=== PATIENT | male | born 1935 | race Caucasian/White ===

== ENCOUNTER 2016-12-04 07:26 | Emergency (ER) | payer MEDICARE, BC ==
[~2016-12-04] VITALS: Ht 180.3 cm; Wt 81.0 kg
[~2016-12-04 07:26] MED LIST: ASPI81CH37 CHEW; METO50TA PO; MULT1TAB84 PO; NAPR250T57 PO; WELC625T2 PO
[2016-12-04 07:31] VITALS: BP 119/55; PULSE 67; RESP 16; TEMP 97.9; O2SAT 95
[2016-12-04] MEDS ORDERED: HYDR-3533 PO (07:55)
[2016-12-04] MEDS ORDERED: NEXI40CA PO (07:55)
[2016-12-04] MEDS ORDERED: LEVO.05 PO (07:55)
[2016-12-04] MEDS ORDERED: WELC625T2 PO (07:55)
[2016-12-04 08:08] LABS: AUTOMATED NEUTROPHIL # 7.7 TH/MM3 (1.8-7.7); BASOPHIL # 0.1 TH/MM3 (0-0.2); BASOPHIL % 0.7 % (0.0-2.0); EOSINOPHIL # 0.1 TH/MM3 (0-0.4); EOSINOPHIL % 0.7 % (0.0-4.0); HEMATOCRIT 40.4 % (39.0-51.0); LYMPH % 9.9 % (9.0-44.0); MEAN CELL VOLUME 93.7 FL (80.0-100.0); MEAN CORPUSCULAR HEMOGLOBIN 32.3 PG (27.0-34.0); MEAN CORPUSCULAR HGB CONC 34.5 % (32.0-36.0); MONO % 10.8 % (0.0-8.0); NEUT % 77.9 % (16.0-70.0); PLATELET COUNT 170 TH/MM3 (150-450); RED BLOOD COUNT 4.31 MIL/MM3 (4.50-5.90); RED CELL DISTRIBUTION WIDTH 13.1 % (11.6-17.2)
[2016-12-04 08:13] LABS: HEMO FLAGS DIFF FINAL
[2016-12-04] MEDS ORDERED: HYDROmorphone HCL PF 1 MG/ML VIAL IV PUSH ONE (08:15)
[2016-12-04] MEDS ORDERED: KETOROLAC TROMETHAMINE 30 MG/ML (IVP) VIAL IV PUSH ONE (08:15)
[2016-12-04] MEDS ORDERED: CEPH-460 PO (08:16)
[2016-12-04] MEDS ORDERED: PERC5TAB12 PO (08:16)
--- NOTE | 2016-12-04 08:16 | PD ---
HPI Chief Complaint: Pain: Acute or Chronic Time Seen by Provider: 07:41 Travel History International Travel<30 days: No Contact w/Intl Traveler<30days: No Traveled to known affect area: No History of Present Illness HPI 81-year-old man presents to the emergency department complaining of right knee pain. He is postop day 2 following an arthroscopic surgery for what sounds like meniscal tear repair with Dr. Betty Villarreal. He's had worsening pain over the past couple days not controlled by his Lortab 5/325 that he was prescribed. He had a chill last night. Otherwise doing well. He states that a lot of difficulty controlling his pain after shoulder surgery as well. He is a history of Ambrose badillo, is on aspirin, hyperlipidemia, and prostate cancer with a chronic indwelling Payne catheter. No hardware in the knee. No other complaints. History Past Medical History Narrative Medical TIA Ambrose badillo, on aspirin Hyperlipidemia History of prostate cancer, status post radiation, chronic and going fully catheter due to bladder outlet obstruction Hypothyroidism PNEUMOCCOCAL Vaccine (Year): 2010 Menopausal: No Dilation and Curettage (D&C): No Social History Alcohol Use: Yes (DAILY WINE) Tobacco Use: No (QUIT 1959') Allergies-Medications (Allergen,Severity, Reaction): Coded Allergies: Flomax (Verified Allergy, Intermediate, RAPID HEARTBEAT, 12/04/16) Reported Meds & Prescriptions Reported Meds & Active Scripts Active Reported Synthroid (Levothyroxine Sodium) 50 Mcg Tab 50 Mcg PO DAILY Welchol (Colesevelam HCl) 625 Mg Tab 1,875 Mg PO BID Nexium (Esomeprazole DR) 40 Mg Capdr 40 Mg PO DAILY Lortab (Hydrocodone-Acetaminophen) 5-325 Mg Tab 1 Tab PO Q4H PRN Aspirin Low Dose (Aspirin) 81 Mg Chew 81 Mg CHEW DAILY Review of Systems Except as stated in HPI: all other systems reviewed are Neg Physical Exam Narrative GENERAL: 81-year-old man, no acute distress. SKIN: Warm and dry. CARDIOVASCULAR: Warm and well perfused. RESPIRATORY: Normal rate and effort. MUSCULOSKELETAL: Focused examination of the right lower extremity reveals 2 surgical incisions with Steri-Strips and a little bit of blood over the anterior knee. There is a large knee effusion. Surrounding the areas of Steri- Strips there is some faint erythema about a centimeter or so out. Very faint, blanching, without any deep erythema raised margins or other evidence of obvious cellulitis. NEUROLOGICAL: Awake and alert. No gross deficits. Data Data Last Documented VS Vital Signs Date Time Temp Pulse Resp B/P Pulse Ox O2 Delivery O2 Flow Rate FiO2 12/04/16 07:31 97.9 67 16 119/55 95 Orders Complete Blood Count With Diff (12/04/16 07:49) [facility] Medical Decision Making Medical Screen Exam Complete: Yes Emergency Medical Condition: Yes Interpretation(s) CBC unremarkable Differential Diagnosis Inflammation, knee effusion, postop pain, infection, other Narrative Course Medical decision making 81-year-old man with severe knee pain following his surgery. He is a sizable effusion. He also has some faint erythema on the surfaces skin. The leg is not obviously warm or with obvious evidence of cellulitis or septic arthritis. I spoke with Dr. Brumfield, on-call for Dr. Betty Villarreal. We'll place him on a stronger pain medicine. We'll place him on some prophylactic antibiotics given the minimal erythema on the anterior knee. He has an appointment with Dr. Villarreal tomorrow. Diagnosis Primary Impression: Right knee pain Qualified Code: M25.561 - Acute pain of right knee Additional Instructions: Take Keflex as prescribed. Use Percocet as needed. Continue Aleve twice daily. Follow-up with Dr. Villarreal tomorrow. Return to the emergency department for any fevers, chills, worsening pain, or any other new or worsening symptoms. Med/Other Pt SpecificInfo: Prescription(s) given Scripts Oxycodone-Acetaminophen (Percocet)5-325 mg Tab1-2 Tab PO Q4H PRN (PAIN) #30 TAB Ref 0 Prov:Olman Shane MD 12/04/16 Cephalexin (Keflex)500 Mg Dde328 Mg PO Q8H 7 Days Ref 0 Prov:Olman Shane MD 12/04/16 Disposition: 01 DISCHARGE HOME Condition: Stable Olman Shane MD Dec 04, 2016 08:16
== END 2016-12-04 09:13 | disposition home or self-care (01) ==
LOC: PHED 07:26
DX: G89.18 Other acute postprocedural pain (principal); M25.461 Effusion, right knee; Z86.73 Personal history of transient ischemic attack (TIA), and cerebral infarction without residual deficits; I48.91 Unspecified atrial fibrillation; E78.5 Hyperlipidemia, unspecified; Z85.46 Personal history of malignant neoplasm of prostate; E03.9 Hypothyroidism, unspecified; F10.10 Alcohol abuse, uncomplicated; Z79.82 Long term (current) use of aspirin
CPT/HCPCS: 85025; 96374; 96375; 99283; J1170; J1885

== ENCOUNTER 2017-01-21 13:28 | Emergency (ER) | payer MEDICARE, BC ==
[~2017-01-21] VITALS: Ht 180.3 cm; Wt 82.0 kg
[~2017-01-21 13:28] MED LIST changes: +CEPH-460 PO; +HYDR-3533 PO; +LEVO.05 PO; -METO50TA PO; -MULT1TAB84 PO; -NAPR250T57 PO; +NEXI40CA PO; +PERC5TAB12 PO
[2017-01-21 13:35] VITALS: BP 107/64; PULSE 79; RESP 16; TEMP 97.9; O2SAT 97
[2017-01-21] MEDS ORDERED: MULT1TAB84 PO (13:51)
[2017-01-21] MEDS ORDERED: WELC625T2 PO (13:51)
[2017-01-21] MEDS ORDERED: ZINC50TA PO (13:51)
[2017-01-21] MEDS ORDERED: VITA100021 SL (13:51)
[2017-01-21] MEDS ORDERED: CALC600T13 PO (13:51)
[2017-01-21] MEDS ORDERED: VITA10006 PO (13:51)
[2017-01-21] MEDS ORDERED: VITA100064 PO (13:51)
--- NOTE | 2017-01-21 13:57 | PD ---
HPI Chief Complaint: Musculoskeletal Complaint Time Seen by Provider: 13:54 Travel History International Travel<30 days: No Contact w/Intl Traveler<30days: No Traveled to known affect area: No History of Present Illness HPI 82-year-old male status post arthroscopy in November by Dr. Villarreal presents to the emergency department with ongoing and worsening right knee pain with ambulation. Patient states he's had steroid injection to the knee partially 2 weeks ago with approximate 5 days of improvement. Patient has Percocet but states it "does nothing for it". He currently states he is unable to bear weight on the right knee secondary to pain. He denies fever, chills, or erythema. Patient denies any history of gout in the past. He presents due to the ongoing and worsening pain and inability to ambulate. Patient states the pain is over 10 at rest but 10 over 10 when trying to ambulate. He is allergic to Flomax. PFSH Past Medical History Hx Anticoagulant Therapy: Yes (ASA BABY DAILY) Arthritis: Yes Atrial Fibrillation: Yes Autoimmune Disease: No Blood Disorders: No Depression: No Heart Rhythm Problems: Yes (a fib) Cancer: Yes (PROSTATE, skin) Cardiovascular Problems: Yes (A. FIB , CHOL) High Cholesterol: Yes Chemotherapy: No Chest Pain: Yes Congestive Heart Failure: No Cerebrovascular Accident: Yes (TIA) Diabetes: No Diminished Hearing: No Endocrine: No Gastrointestinal Disorders: Yes (HX GI BLEED) GERD: Yes Genitourinary: Yes (INDWELLING WILLARD, HX OF BLADDER SX, TURP, HYDROCEIL) Headaches: Yes Hypertension: Yes Immune Disorder: No Implanted Vascular Access Dvce: No Kidney Stones: Yes Musculoskeletal: Yes Neurologic: Yes Psychiatric: No Reproductive: Yes (PROSTATE CANCER) Respiratory: Yes Immunizations Current: Yes Migraines: No Radiation Therapy: Yes Renal Failure: No Thyroid Disease: Yes (HYPO) PNEUMOCCOCAL Vaccine (Year): 2010 Menopausal: No Ectopic : No Ovarian Cysts: No Dilation and Curettage (D&C): No Tubal Ligation: No Past Surgical History Abdominal Surgery: Yes (HERNIA REPAIR) Appendectomy: Yes Section: No Cholecystectomy: Yes Eye Surgery: Yes (BILAT CATARACTS) Genitourinary Surgery: Yes (TURP, HYDROCELE) Hysterectomy: No Neurologic Surgery: No Other Surgery: Yes (SKIN CA REMOVAL) Social History Alcohol Use: Yes (DAILY WINE) Tobacco Use: No (QUIT ) Substance Use: No Allergies-Medications (Allergen,Severity, Reaction): Coded Allergies: Flomax (Verified Allergy, Intermediate, RAPID HEARTBEAT, 01/21/17) Reported Meds & Prescriptions Reported Meds & Active Scripts Active Prednisone (48) 10 mg tab Dose Pack (Prednisone) 10 Mg Dspk 10 Mg PO DIRECTED Reported Zinc 50 Mg Tab 50 Mg PO DAILY Vitamin E 1,000 Unit Cap 1,000 Units PO DAILY Calcium 600 Mg Tab 600 Mg PO DAILY Multivitamin Adults (Multiple Vitamins W/ Minerals) 1 Tab 1 Tab PO DAILY Vitamin B-12 (Cyanocobalamin) 1,000 Mcg Subl 1,000 Mcg SL DAILY Vitamin D (Cholecalciferol) 1,000 Unit Tab 1,000 Units PO DAILY Welchol (Colesevelam HCl) 625 Mg Tab 1,875 Mg PO DAILY Synthroid (Levothyroxine Sodium) 50 Mcg Tab 50 Mcg PO DAILY Welchol (Colesevelam HCl) 625 Mg Tab 1,875 Mg PO BID Nexium (Esomeprazole DR) 40 Mg Capdr 40 Mg PO DAILY Review of Systems Except as stated in HPI: all other systems reviewed are Neg General / Constitutional: No: Fever, Chills Eyes: No: Visual changes HENT: No: Headaches Cardiovascular: No: Chest Pain or Discomfort Respiratory: No: Shortness of Breath Gastrointestinal: No: Abdominal Pain Genitourinary: No: Dysuria Musculoskeletal: No: Pain Skin: No Rash Neurologic: No: Weakness Psychiatric: No: Depression Endocrine: No: Polydipsia Hematologic/Lymphatic: No: Easy Bruising Physical Exam Narrative GENERAL: Patient appears in mild to moderate distress. SKIN: Warm and dry. Normal color. Normal turgor. The right knee has mild effusion without erythema but increased warmth is present. HEAD: Atraumatic. Normocephalic. EYES: Pupils equal and round. No scleral icterus. No injection or drainage. ENT: No nasal bleeding or discharge. Mucous membranes pink and moist. NECK: Trachea midline. No JVD. CARDIOVASCULAR: Irregular rate and rhythm. No murmurs appreciated. RESPIRATORY: No accessory muscle use. Clear to auscultation. Breath sounds equal bilaterally. MUSCULOSKELETAL: Extremities without clubbing, cyanosis, or edema. No obvious deformities. Patient has mild effusion of the right knee without signs of infection. Range of motion is limited secondary to pain. NEUROLOGICAL: Awake and alert. No obvious cranial nerve deficits. Motor grossly within normal limits. Five out of 5 muscle strength in the arms and legs. Normal speech. PSYCHIATRIC: Appropriate mood and affect; insight and judgment normal. Data Data Last Documented VS Vital Signs Date Time Temp Pulse Resp B/P Pulse Ox O2 Delivery O2 Flow Rate FiO2 01/21/17 14:03 97 01/21/17 13:35 97.9 79 16 107/64 Orders Complete Blood Count With Diff (01/21/17 13:51) Comprehensive Metabolic Panel (01/21/17 13:51) Prothrombin Time / Inr (Pt) (01/21/17 13:51) Act Partial Throm Time (Ptt) (01/21/17 13:51) Iv Access Insert/Monitor (01/21/17 13:51) Ecg Monitoring (01/21/17 13:51) Oximetry (01/21/17 13:51) Sodium Chloride 0.9% Flush (Ns Flush) (01/21/17 14:00) Uric Acid (01/21/17 13:51) Westergren Sedimentation Rate (01/21/17 13:51) C-Reactive Protein (Crp) (01/21/17 13:51) Dexamethasone Inj (Decadron Inj) (01/21/17 16:30) Labs Laboratory Tests Test 01/21/17 13:55 White Blood Count 7.9 TH/MM3 Red Blood Count 4.54 MIL/MM3 Hemoglobin 14.4 GM/DL Hematocrit 42.3 % Mean Corpuscular Volume 93.3 FL Mean Corpuscular Hemoglobin 31.7 PG Mean Corpuscular Hemoglobin 34.0 % Concent Red Cell Distribution Width 13.1 % Platelet Count 184 TH/MM3 Mean Platelet Volume 7.1 FL Neutrophils (%) (Auto) 77.0 % Lymphocytes (%) (Auto) 14.2 % Monocytes (%) (Auto) 6.9 % Eosinophils (%) (Auto) 1.1 % Basophils (%) (Auto) 0.8 % Neutrophils # (Auto) 6.1 TH/MM3 Lymphocytes # (Auto) 1.1 TH/MM3 Monocytes # (Auto) 0.5 TH/MM3 Eosinophils # (Auto) 0.1 TH/MM3 Basophils # (Auto) 0.1 TH/MM3 CBC Comment DIFF FINAL Differential Comment Erythrocyte Sedimentation Rate 12 mm/hr Prothrombin Time 10.3 SEC Prothromb Time International 0.9 RATIO Ratio Activated Partial 26.1 SEC Thromboplast Time Sodium Level 142 MEQ/L Potassium Level 3.7 MEQ/L Chloride Level 108 MEQ/L Carbon Dioxide Level 25.9 MEQ/L Anion Gap 8 MEQ/L Blood Urea Nitrogen 21 MG/DL Creatinine 1.20 MG/DL Estimat Glomerular Filtration 58 ML/MIN Rate Random Glucose 106 MG/DL Uric Acid 5.4 MG/DL Calcium Level 8.5 MG/DL Total Bilirubin 0.6 MG/DL Aspartate Amino Transf 17 U/L (AST/SGOT) Alanine Aminotransferase 27 U/L (ALT/SGPT) Alkaline Phosphatase 76 U/L C-Reactive Protein 3.18 MG/DL Total Protein 6.5 GM/DL Albumin 3.4 GM/DL MDM Medical Decision Making Medical Screen Exam Complete: Yes Emergency Medical Condition: Yes Differential Diagnosis Right knee effusion. Right knee pain. Osteoarthritis. Gout. Infection. Narrative Course Patient is medically stable at time of exam. Labs ordered including CBC, CMP, uric acid level ESR, and CRP. CBC is unremarkable as is the CMP. Uric acid level is normal. ESR is normal. CRP is elevated at 3.36. Call was attempted to be placed to Dr. Villarreal, and I spoke with Dr. Villa who was on-call for him. We agreed on the patient treatment plan. I do not feel the patient has cellulitis in the knee. Patient will be treated with Decadron 10 mg IV as well as a prednisone taper pack over the next 2 weeks. Patient is encouraged to take his Percocet every 6 hours when necessary pain. Patient is encouraged to use his cane or walker for ambulation. Recommend frequent icing to the right knee. Patient is encouraged to follow with Dr. Villarreal next week to ensure improvement. Patient may return the emergency Department with worsening symptoms as needed. Diagnosis Primary Impression: Right knee pain Qualified Code: M25.561 - Chronic pain of right knee Additional Impression: Osteoarthritis (arthritis due to wear and tear of joints) Qualified Code: M17.11 - Osteoarthritis of right knee, unspecified osteoarthritis type Referrals: Rangel Villarreal MD ([place]) Patient Instructions: General Instructions, Osteoarthritis (ED) Additional Instructions: Labs ordered including CBC, CMP, uric acid level ESR, and CRP. CBC is unremarkable as is the CMP. Uric acid level is normal. ESR is normal. CRP is elevated at 3.36. Call was attempted to be placed to Dr. Villarreal who was unreachable. I do not feel the patient has cellulitis in the knee. Patient will be treated with Decadron 10 mg IV as well as a prednisone taper pack over the next 2 weeks. Patient is encouraged to take his Percocet every 6 hours when necessary pain. Patient is encouraged to use his cane or walker for ambulation. Recommend frequent icing to the right knee. Patient is encouraged to follow with Dr. Villarreal next week to ensure improvement. Patient may return the emergency Department with worsening symptoms as needed. Med/Other Pt SpecificInfo: Prescription(s) given Scripts Prednisone (48) 10 mg tab Dose Pack 10 Mg Dspk10 Mg PO DIRECTED #1 DSPK Prov:Khanh Hsu MD 01/21/17 Disposition: 01 DISCHARGE HOME Condition: Stable Fercho Betts Jan 21, 2017 13:57
[2017-01-21] MEDS ORDERED: SODIUM CHLORIDE 0.9% FLUSH 5 ML FLUSH IVF PRN (14:00)
[2017-01-21 14:03] VITALS: O2SAT 97
[2017-01-21 14:07] LABS: AUTOMATED NEUTROPHIL # 6.1 TH/MM3 (1.8-7.7); BASOPHIL # 0.1 TH/MM3 (0-0.2); BASOPHIL % 0.8 % (0.0-2.0); EOSINOPHIL # 0.1 TH/MM3 (0-0.4); EOSINOPHIL % 1.1 % (0.0-4.0); HEMATOCRIT 42.3 % (39.0-51.0); LYMPH % 14.2 % (9.0-44.0); LYMPHOCYTE # 1.1 TH/MM3 (1.0-4.8); MEAN CELL VOLUME 93.3 FL (80.0-100.0); MEAN CORPUSCULAR HEMOGLOBIN 31.7 PG (27.0-34.0); MONO % 6.9 % (0.0-8.0); PLATELET COUNT 184 TH/MM3 (150-450); RED BLOOD COUNT 4.54 MIL/MM3 (4.50-5.90); RED CELL DISTRIBUTION WIDTH 13.1 % (11.6-17.2); WHITE BLOOD COUNT 7.9 TH/MM3 (4.0-11.0)
[2017-01-21 14:16] LABS: CHLORIDE 108 MEQ/L (98-107); HEMO FLAGS DIFF FINAL; POTASSIUM 3.7 MEQ/L (3.5-5.1); SODIUM (NA) 142 MEQ/L (136-145)
[2017-01-21 14:20] LABS: ANION GAP 8 MEQ/L (5-15); APTT (PATIENT) 26.1 SEC (24.3-30.1); BICARBONATE 25.9 MEQ/L (21.0-32.0); BLOOD UREA NITROGEN 21 MG/DL (7-18); INTERNATIONAL NORMALIZED RATIO 0.9 RATIO; PROTHROMBIN TIME - PATIENT 10.3 SEC (9.8-11.6)
[2017-01-21 14:23] LABS: ALT (GPT) 27 U/L (12-78); AST (GOT) 17 U/L (15-37); GLOMERULAR FILTRATION RATE 58 ML/MIN (>89)
[2017-01-21 14:25] LABS: TOTAL BILIRUBIN ADULT 0.6 MG/DL (0.2-1.0)
[2017-01-21 14:26] LABS: ALKALINE PHOSPHATASE 76 U/L (45-117)
[2017-01-21 15:50] LABS: URIC ACID 5.4 MG/DL (2.6-7.2)
[2017-01-21] MEDS ORDERED: PRED10PA2 PO (16:25)
[2017-01-21] MEDS ORDERED: DEXAMETHASONE SOD PHOS 20 MG/5 ML VIAL IV PUSH ONE (16:30)
== END 2017-01-21 17:06 | disposition home or self-care (01) ==
LOC: PHEFT 13:28
DX: M17.11 Unilateral primary osteoarthritis, right knee (principal); G89.29 Other chronic pain; I48.91 Unspecified atrial fibrillation; I10 Essential (primary) hypertension; Z87.891 Personal history of nicotine dependence
CPT/HCPCS: 80053; 84550; 85025; 85610; 85652; 85730; 86140; 96374; 99283; J1100

== ENCOUNTER 2017-10-26 05:50 | Day surgery (SDC) | payer MEDICARE, BC ==
[~2017-10-26 05:50] MED LIST changes: -ASPI81CH37 CHEW; +CALC600T13 PO; -CEPH-460 PO; +COLE625 PO; -HYDR-3533 PO; +MULT1TAB84 PO; -PERC5TAB12 PO; +PRED10PA2 PO; +VITA100021 SL; +VITA10006 PO; +VITA100064 PO; -WELC625T2 PO; +ZINC50TA PO
[2017-10-26] MEDS ORDERED: MUPIROCIN 2% OINT 1 APPLIC/GM SYR NASAL SCH (06:45)
[2017-10-26] MEDS ORDERED: POVIDONE IODINE 5% (ANTISEPSIS KIT) 4 APPLICATIONS EACH NARE SCH (06:45)
[2017-10-26] MEDS ORDERED: CHLORHEXIDINE GLUCONATE 2 % 1 PACK (2 CLOTHS) TOPICAL SCH (06:45)
[2017-10-26] MEDS ORDERED: Hold AM Insulin & AM Hypoglycemic medications in diabetic patients PRN (06:45)
[2017-10-26] MEDS ORDERED: NS 1000 ML IV SCH (06:45)
[2017-10-26] MEDS ORDERED: ceFAZolin 2 GM PREMIX 50 ML IV SCH (06:45)
[2017-10-26] MEDS ORDERED: ASPI-516 CHEW (07:12)
[2017-10-26] MEDS ORDERED: TOPR50TA PO (07:12)
[2017-10-26] MEDS ORDERED: COLE625 PO (07:12)
[2017-10-26] MEDS ORDERED: LIDOCAINE HCL 1% PF 30 ML VIAL ONE ×2 (07:55→08:06)
[2017-10-26] MEDS ORDERED: VANCOMYCIN 500 MG VIAL ONE (07:55)
[2017-10-26] MEDS ORDERED: MIDAZOLAM HCL 2 MG/2 ML VIAL ONE (07:55)
[2017-10-26] MEDS ORDERED: NALOXONE HCL 0.4 MG/ML AMP ONE (07:56)
[2017-10-26] MEDS ORDERED: FLUMAZENIL 0.5 MG/5 ML VIAL ONE (07:56)
--- NOTE | 2017-10-26 08:39 | CATHPROC ---
[facility] HIS Report Study Information Study Number Admission Scheduled Start Study Start [id number] Oct 26 2017 5:50AM 10/26/2017 Oct 26 2017 7:36AM [place] [facility] Cardiac Pacer/ICD Admit Source Facility Department Other [facility] - Footwear Sales Associate Physician and Clinical Staff Initial MD Luna, Lobo Story Reader Heena Alberts BSRN Story Reader Anahy Whitley RN Recorder Josefina Cardenas,RT(R) Scrub Kelly Figueroa,DESIGN CENTER CONSULTANT X-Ray Mirna Upton,RT(R) TECH2 Equipment Time Light Industrial Description Size Mfg Part Number Used/Scraped [id number] 08:12 [employer] SUTURE, STRIP PLUS 1/2" * Used *[id number] 08:12 [employer] SUTURE, STRIP PLUS 1/2" * Used *[id number] 08:12 MEDLINE PACER ADHESIVE, MASTISOL 2/3CC 2/3CC 0523-48 Used 08:12 MEDLINE PACER QUEEN, LIMB * 2530 *[id number] Used [id number] 08:12 MEDLINE PACER PACK, PACER CUSTOM * Used *[id number] 08:12 MEDLINE PACER PEN, SKIN DUAL W/ RULER * Used *[id number] 08:18 Needle Sponge Count 1 1 Used 08:18 Needle Sponge Count 2 22 Used 08:18 Needle Sponge Count 20 200 Used [id number] SUTURE, 2-0 SILK Strands ([id number]) SUTURE, 3-0 VICRYL [SH] ([id number]) SUTURE, 4-0 MONOCRYL [PS2] ([id number]) SUTURE, 4-0 VICRYL [PS2] ([id number]) [id number] 08:12 [employer],WARM AIR CCL * Used *[id number] [facility] PAD, ELECTROSURGICAL 08:12 * [id number] *[id number] Used SURGICAL GROUNDING ORANGE [id number] 08:12 [employer] PAXTON. / * Used *11909 Labs Hgb (g/dl) Hct (%) WBC (l/cumm) Platelets (thousands) 11.60-17.00 35.00-51.00 4.00-11.00 150.00-450.00 14.5 41.9 5.7 174 Glucose (mg/dl) BUN (mg/dl) Creatinine (mg/dl) BUN:Creatinine (1:x) 74.00-106.00 7.00-18.00 0.50-1.30 10.00-20.00 103 22 1.3 16.9 Na (meq/l) K (meq/l) 136.00-145.00 3.50-5.10 142 4.3 CPK-MB (ng/ML) 0.50-3.60 Not Drawn Medication Medication Total Dose (Bolus/Oral) Medication Total Dosage/Unit 2% XYLOCAINE 50 mL OXYGEN 2 l/min VERSED 2 mg Medications (Bolus/Oral) Medication Time Given Dosage/Unit Administered By Reason OXYGEN 10/26/2017 8:11:43 AM 2 l/min Anahy Whitley 2 l/min OXYGEN given in lab by Anahy Whitley, RN via Nasal. 2% XYLOCAINE 10/26/2017 8:13:45 AM 50 mL Lobo Luna 50 mL 2% XYLOCAINE given in lab by Lobo Luna via Subcutaneous. VERSED 10/26/2017 8:15:48 AM 2 mg Anahy Whitley Patient arrived on 2 mg VERSED given by Anahy Whitley, RN via Peripheral IV. Ordered by Lobo Luna. Medication (Drip) Medication Time Given Dosage/Unit Concentration/Unit Diluent (ml) Solutio n ANCEF 10/26/2017 7:56:45 AM 1 g 1 g ANCEF given pre op via Peripheral IV. Ordered by Lobo Luna. IV Solutions 10/26/2017 8:02:55 AM 0 mL (IV) 500 NaCl .9 Patient arrived on IV Solutions in Right Antecubital via Peripheral IV. Pump/Drip Flow = 20 ml/hr usi ng NaCl .9. Ordered by Lobo Luna. Initial Case Assessment Cardiovascular HR Rhythm NIBP Chest Pain 71 reg 112/70 0 Edema Present Skin color Skin None Normal Warm Neurological State Oriented to time-place- Alert Moves all extremities person Respiration - General Respiration Rate SpO2 (%) (B/min) 14 100 Chronological Log Time Study Chronological Log 7:54:03 Patient arrived via Bed. 7:54:04 Patient Name, D.O.B, / Armband Verified By R.N. 7:56:45 1 g ANCEF given pre op via Peripheral IV. Ordered by Lobo Luna. 7:58:00 2% CHLORHEXIDINE GLUCONATE WASH AND NASAL SWIPE DONE PRIOR TO PROCEDURE. 7:58:30 Patient has been NPO for More than 6Hrs. 7:59:00 A # 20 IV was noted in the Antecubital (right). Grade = 0 7:59:01 History and physical on the chart or being dictated. 7:59:10 Skin Breakdown-none 8:00:00 Bovie ground pad applied to:right thigh First Sponge And Instrument Count Done by Anahy Whitley RN. 8:01:00 Hypo's: 1, Sponges: 20, Bovie/scratch: 2 Sutures: 2, Blades: 2, Instruments: 26, Syveck Patches: 0 8:02:38 Left Upper Chest Prepped Times Two. Patient arrived on IV Solutions in Right Antecubital via Peripheral IV. Pump/Drip Flow = 20 ml/h r using NaCl .9. Ordered 8:02:55 by Lobo Luna. Assessment: Initial Case, HR=71 BPM, Rhythm=reg, YCLN=743/70 mmhg, Chest Pain=0, Edema=None, Col or=Normal, Skin = Warm 8:03:39 Neurological: State=Alert, Ox3, [place] Respiration: Resp=14 B/min, AnZ0=936 % Vitals capture started with the following parameters, Patient=Adult, Interval=15 min, Initial Pr ooqjpd=598 mmHg, 8:05:58 Deflation Rate=5 mmHg 8:09:34 Case Start 8:11:43 2 l/min OXYGEN given in lab by Anahy Whitley RN via Nasal. 8:12:21 Vitals capture stopped. 8:12:27 HR=82 bpm, JKPA=573/70 mmhg, SpO2=99 %, Pain=0, Kavin=10, Dey=2 Time Out. Correct patient, procedure, procedure equipment, site and side verified with physician present. Time 8:13:00 concurred by MD, individual staff and TURBINE ENGINE ASSEMBLER. 8:13:45 50 mL 2% XYLOCAINE given in lab by Lobo Luna via Subcutaneous. 8:15:48 Patient arrived on 2 mg VERSED given by Anahy Whitley RN via Peripheral IV. Ordered by Lobo Fregoso. 8:16:26 Surgical Incision Made. 8:16:40 A pocket was created at the Lt. upper chest. 8:21:32 Loop Recorder Removed. 8:23:22 The pocket was closed. 8:23:51 Implant Procedure was performed. 8:23:59 A Loop Recorder Removed . (Single) Second Sponge And Instrument Count Done by Lobo Luna. 8:24:40 Hypo's: 1, Sponges: 20, Bovie/scratch: 2 Sutures: ~SUTURE~, Blades: 2, Instruments: 26, Syveck Patches: 0 8:26:15 Case End The Final Sponge And Instrument Count Done by Lobo Luna. 8:27:30 Hypo's: 1, Sponges: 20, Bovie/scratch: 2 Sutures: 2, Blades: 2, Instruments: 26, Syveck Patches: 0 8:31:25 HR=90 bpm, FYYC=187/62 mmhg, SpO2=95 %, Pain=0, Kavin=10, Dey=2 8:37:03 Bedside Report will be given. 8:37:07 Steri-strips and a sterile dressing applied to site. End Study - Contrast Media Used In Study Contrast Total Opened (mL) Total Used (mL) Total Wasted (mL) Unspecified 0 0 0 End Study - Maximum Contrast Load Max Contrast Load (mL) 315.4 End Study - Radiation Exposure Fluoro Time (minutes) 0.0 End Study - Patient Disposition Complications Transferred To No Outpatient Bed
== END 2017-10-26 09:50 | disposition home or self-care (01) ==
LOC: HDOC 05:50 → HDIC 05:50 → HDOC 09:50
PROVIDERS: ATTEND Internal Medicine Interventional Cardiology
DX: Z45.09 Encounter for adjustment and management of other cardiac device (principal); I48.0 Paroxysmal atrial fibrillation; Z95.818 Presence of other cardiac implants and grafts; Z86.73 Personal history of transient ischemic attack (TIA), and cerebral infarction without residual deficits; Z79.82 Long term (current) use of aspirin
CPT/HCPCS: 33284; 99152; J0690; J2250; J3010; J3370; J2310

== ENCOUNTER 2018-01-22 11:13 | Emergency (ER) | payer MEDICARE, BC ==
[~2018-01-22] VITALS: Ht 180.3 cm; Wt 84.0 kg
[~2018-01-22 11:13] MED LIST changes: +ASPI-516 CHEW; -CALC600T13 PO; -MULT1TAB84 PO; -PRED10PA2 PO; +TOPR50TA PO; -VITA10006 PO; -ZINC50TA PO
[2018-01-22 11:14] VITALS: BP 117/68; PULSE 76; RESP 18; TEMP 98; O2SAT 96
[2018-01-22] MEDS ORDERED: NIAC100T2 PO (11:33)
--- NOTE | 2018-01-22 11:41 | PD ---
HPI Chief Complaint: Skin Problem Time Seen by Provider: 11:27 Travel History International Travel<30 days: No Contact w/Intl Traveler<30days: No Traveled to known affect area: No History of Present Illness HPI Patient states that about a 4 day history of increasing swelling to his left lower extremity. After he accidentally stumped his toe, he started to develop swelling to his foot and now he started to notice a swelling getting worse. So he decided to come and get it evaluated. He presented to an urgent care who referred him to come to the ER to rule out DVT. No additional testing was done at that urgent care. Patient is here stating that outside of the swelling his pain to his toe is the main issue that he has been having. But that he got scared when urgent care mention the possibility of blood clot. The pain is about [address] Pain is worsened by ambulation and movement of this toe. Does not seem to be alleviated greatly by anything else. Not associated with any factors such as fever, rash, nausea, vomiting, diarrhea , chest pain, abdominal pain or back pain. Patient states Flomax as an allergy PFSH Past Medical History Hx Anticoagulant Therapy: Yes (ASA BABY DAILY) Arthritis: Yes Atrial Fibrillation: Yes Autoimmune Disease: No Blood Disorders: No Depression: No Heart Rhythm Problems: Yes (a fib) Cancer: Yes (PROSTATE, skin) Cardiovascular Problems: Yes (AF) High Cholesterol: Yes Chemotherapy: No Chest Pain: Yes Congestive Heart Failure: No Cerebrovascular Accident: Yes (TIA) Diabetes: No Diminished Hearing: No Endocrine: No Gastrointestinal Disorders: Yes (HX GI BLEED) GERD: Yes Genitourinary: Yes (INDWELLING WILLARD, HX OF BLADDER SX, TURP, HYDROCEIL) Headaches: Yes Hypertension: Yes Immune Disorder: No Implanted Vascular Access Dvce: No Kidney Stones: Yes Musculoskeletal: Yes Neurologic: Yes Psychiatric: No Reproductive: Yes (PROSTATE CANCER) Respiratory: Yes Immunizations Current: Yes Migraines: No Radiation Therapy: Yes Renal Failure: No Thyroid Disease: Yes (HYPO) Influenza Vaccination: Yes PNEUMOCCOCAL Vaccine (Year): 2010 Menopausal: No Ectopic : No Ovarian Cysts: No Dilation and Curettage (D&C): No Tubal Ligation: No Past Surgical History Abdominal Surgery: Yes (HERNIA REPAIR) Appendectomy: Yes Section: No Cholecystectomy: Yes Eye Surgery: Yes (BILAT CATARACTS) Genitourinary Surgery: Yes (TURP, HYDROCELE; URINARY CATHETER) Hysterectomy: No Neurologic Surgery: No Other Surgery: Yes (SKIN CA REMOVAL) Social History Alcohol Use: Yes (DAILY WINE) Tobacco Use: No (QUIT ) Substance Use: No Allergies-Medications (Allergen,Severity, Reaction): Coded Allergies: tamsulosin (Unverified Allergy, Intermediate, RAPID HEARTBEAT, 01/22/18) Reported Meds & Prescriptions Reported Meds & Active Scripts Active Reported Niacin 100 Mg Tab 100 Mg PO DAILY Welchol (Colesevelam HCl) 625 Mg Tab 1,875 Mg PO DAILY Toprol XL (Metoprolol Succinate) 50 Mg Tab 50 Mg PO DAILY Vitamin B-12 (Cyanocobalamin) 1,000 Mcg Subl 1,000 Mcg SL DAILY Vitamin D3 (Cholecalciferol) 1,000 Unit Tab 1,000 Units PO DAILY Synthroid (Levothyroxine Sodium) 50 Mcg Tab 50 Mcg PO DAILY Nexium (Esomeprazole DR) 40 Mg Capdr 40 Mg PO DAILY Review of Systems General / Constitutional: No: Fever Eyes: No: Visual changes HENT: No: Headaches Cardiovascular: Positive: Edema Respiratory: No: Shortness of Breath Gastrointestinal: No: Abdominal Pain Genitourinary: No: Dysuria Musculoskeletal: No: Pain Skin: No Rash Neurologic: No: Weakness Psychiatric: No: Depression Endocrine: No: Polydipsia Hematologic/Lymphatic: No: Easy Bruising Physical Exam Narrative GENERAL: SKIN: Warm and dry. HEAD: Atraumatic. Normocephalic. EYES: Pupils equal and round. No scleral icterus. No injection or drainage. ENT: No nasal bleeding or discharge. Mucous membranes pink and moist. NECK: Trachea midline. No JVD. CARDIOVASCULAR: Regular rate and rhythm. RESPIRATORY: No accessory muscle use. Clear to auscultation. Breath sounds equal bilaterally. GASTROINTESTINAL: Abdomen soft, non-tender, nondistended. Hepatic and splenic margins not palpable. MUSCULOSKELETAL: Extremities without clubbing, cyanosis,No obvious deformities. Left second toe has some diffuse edema around it as well as extension of the edema onto the dorsum of the foot and distally towards mid tib-fib. Edema is pitting. However very strong dorsalis pedis pulses, excellent capillary refill time distally to all toes. NEUROLOGICAL: Awake and alert. No obvious cranial nerve deficits. Motor grossly within normal limits. Five out of 5 muscle strength in the arms and legs. Normal speech. PSYCHIATRIC: Appropriate mood and affect; insight and judgment normal. Data Data Last Documented VS Vital Signs Date Time Temp Pulse Resp B/P (MAP) Pulse Ox O2 Delivery O2 Flow Rate FiO2 01/22/18 11:29 Room Air 01/22/18 11:14 98.0 76 18 117/68 (84) 96 Orders Orders Foot, Complete ([id number]) (01/22/18 11:39) Us Leg Venous Doppler (01/22/18 11:39) Shoe Post Op (01/22/18 ) Support Splint (01/22/18 13:57) Ed Discharge Order (01/22/18 13:58) MDM Medical Decision Making Medical Screen Exam Complete: Yes Emergency Medical Condition: Yes Medical Record Reviewed: Yes Differential Diagnosis Toe fracture versus toe dislocation versus DVT versus peripheral edema secondary to trauma. Narrative Course Ultrasound is negative for any DVT X-ray is positive for a transverse nondisplaced fracture of the second digit proximal phalanx involving the distal metaphysis. Diagnosis Primary Impression: Left second toe fracture closed nondisplaced Patient Instructions: General Instructions, Toe Fracture (ED) Scripts Codeine-Acetaminophen (Codeine-Acetaminophen) 30-300 mg Tab 1 TAB PO Q4H Y for PAIN, #14 TAB 0 Refills Prov: Curly Mccabe MD 01/22/18 Disposition: 01 DISCHARGE HOME Condition: Stable Curly Mccabe MD Jan 22, 2018 11:41
--- NOTE | 2018-01-22 12:03 | RADRPT ---
EXAM DATE/TIME: 01/22/2018 11:43 [facility] COMPARISON: No previous studies available for comparison. INDICATIONS : Left Foot second digit swelling. MEDICAL HISTORY : None. SURGICAL HISTORY : None. ENCOUNTER: Initial ACUITY: 1 day PAIN SCORE: 8/10 LOCATION: Left foot FINDINGS: 3 views of the left foot demonstrate a transverse fracture through the proximal phalanx of the second digit involving the distal metaphysis. There is no significant displacement. No extension into the i nterphalangeal joint is identified. No other fracture is identified. The Lisfranc joint appears intac t. No soft tissue abnormality or radiopaque foreign body is identified. CONCLUSION: There is a transverse nondisplaced fracture of the second digit proximal phalanx involving the distal metaphysis. Devan Cope MD on January 22, 2018 at 12:01 Board Certified Radiologist. This report was verified electronically.
--- NOTE | 2018-01-22 13:32 | RADRPT ---
EXAM DATE/TIME: 01/22/2018 12:06 [facility] COMPARISON: No previous studies available for comparison. INDICATIONS : Left leg pain. MEDICAL HISTORY : Stroke. Hypothyroidism. Hypertension. A-fib. GERD. SURGICAL HISTORY : Appendectomy. Cholecystectomy. ENCOUNTER: Initial ACUITY: 3 days PAIN SCORE: 5/10 LOCATION: Left foot. TECHNIQUE: Venous ultrasound of the leg was performed from the inguinal ligament to the proximal calf. Real-susan e, color Doppler and spectral tracing, compression and augmentation techniques were used. FINDINGS: There is normal compressibility of the deep venous system from the inguinal region to the proximal ca lf. No echogenic clot is seen in the lumen of the common femoral, femoral, popliteal, and posterior tibial veins. There is a normal response of the venous system to proximal and distal augmentation an d respiration. CONCLUSION: Negative exam. No sonographic or Doppler findings of deep venous thrombosis. Eddy Light MD on January 22, 2018 at 12:57 Board Certified Radiologist. This report was verified electronically.
[2018-01-22] MEDS ORDERED: CODE30TA2 PO (13:59)
[2018-01-22 14:26] VITALS: BP 138/72
== END 2018-01-22 14:27 | disposition home or self-care (01) ==
LOC: PHED 11:13
DX: S92.515A Nondisplaced fracture of proximal phalanx of left lesser toe(s), initial encounter for closed fracture (principal); E03.9 Hypothyroidism, unspecified; I10 Essential (primary) hypertension; K21.9 Gastro-esophageal reflux disease without esophagitis; X58.XXXA Exposure to other specified factors, initial encounter; Z87.891 Personal history of nicotine dependence
CPT/HCPCS: 73630; 93971; 99284

== ENCOUNTER 2018-03-15 12:20 | Emergency (ER) | payer MEDICARE, BC ==
[~2018-03-15] VITALS: Ht 180.3 cm; Wt 82.0 kg
[~2018-03-15 12:20] MED LIST changes: -ASPI-516 CHEW; +CODE30TA2 PO; +NIAC100T2 PO
[2018-03-15 12:26] VITALS: BP 108/61; PULSE 101; RESP 18; TEMP 97.9; O2SAT 96
[2018-03-15] MEDS ORDERED: ASPI81CH7 CHEW (12:39)
[2018-03-15] MEDS ORDERED: predniSONE 20 MG TAB PO ONE (13:15)
[2018-03-15] MEDS ORDERED: RESP: ALBUTEROL 2.5 MG/3 ML NEB (SCH) INH ONE (13:15)
--- NOTE | 2018-03-15 13:32 | PD ---
HPI Chief Complaint: Cold / Flu Symptoms Time Seen by Provider: 13:07 Travel History International Travel<30 days: No Contact w/Intl Traveler<30days: No Traveled to known affect area: No History of Present Illness HPI 83-year-old male here with cough and congestion 3 days. He denies chest pain, palpitations, shortness of breath, orthopnea, lower extremity swelling. No fever chills. Symptom severity moderate. No aggravating or alleviating factors. No associating symptoms. PFSH Past Medical History Hx Anticoagulant Therapy: Yes (ASA 81MG DAILY) Arthritis: Yes Atrial Fibrillation: Yes Autoimmune Disease: No Blood Disorders: No Depression: No Heart Rhythm Problems: Yes (a fib) Cancer: Yes (PROSTATE, skin) Cardiovascular Problems: Yes (AF) High Cholesterol: Yes Chemotherapy: No Chest Pain: Yes Congestive Heart Failure: No Cerebrovascular Accident: Yes (TIA) Diabetes: No Diminished Hearing: No Endocrine: No Gastrointestinal Disorders: Yes (HX GI BLEED) GERD: Yes Genitourinary: Yes (, HX OF BLADDER SX, TURP, HYDROCEIL) Headaches: Yes Hypertension: Yes Immune Disorder: No Implanted Vascular Access Dvce: No Kidney Stones: Yes Musculoskeletal: Yes Neurologic: Yes Psychiatric: No Reproductive: Yes (PROSTATE CANCER) Respiratory: Yes Immunizations Current: Yes Migraines: No Radiation Therapy: Yes Renal Failure: No Thyroid Disease: Yes (HYPO) Tetanus Vaccination: > 5 Years PNEUMOCCOCAL Vaccine (Year): 2010 Menopausal: No Ectopic : No Ovarian Cysts: No Dilation and Curettage (D&C): No Tubal Ligation: No Past Surgical History Abdominal Surgery: Yes (HERNIA REPAIR) Appendectomy: Yes Section: No Cholecystectomy: Yes Eye Surgery: Yes (BILAT CATARACTS) Genitourinary Surgery: Yes (TURP, HYDROCELE; ) Hysterectomy: No Neurologic Surgery: No Other Surgery: Yes (SKIN CA REMOVAL sphincter) Social History Alcohol Use: Yes (DAILY WINE) Tobacco Use: No (QUIT ) Substance Use: No Allergies-Medications (Allergen,Severity, Reaction): Coded Allergies: tamsulosin (Unverified Allergy, Intermediate, RAPID HEARTBEAT, 03/15/18) Reported Meds & Prescriptions Reported Meds & Active Scripts Active Tessalon Perles (Benzonatate) 100 Mg Cap 200 Mg PO TID PRN Ventolin Hfa 18 GM Inh (Albuterol Sulfate) 90 Mcg/Act Aer 2 Puff INH Q4-6H PRN Prednisone 20 Mg Tab 40 Mg PO DAILY Take 40 mg (2 tablets) daily for 5 days Azithromycin 250 Mg Tab 250 Mg PO DIRECTED Take 2 tabs (500 mg) on day 1 then 1 tab daily x 4 days. Reported Aspirin Children's (Aspirin) 81 Mg Chew 81 Mg CHEW DAILY Welchol (Colesevelam HCl) 625 Mg Tab 1,875 Mg PO DAILY Toprol XL (Metoprolol Succinate) 50 Mg Tab 50 Mg PO DAILY Synthroid (Levothyroxine Sodium) 50 Mcg Tab 50 Mcg PO DAILY Nexium (Esomeprazole DR) 40 Mg Capdr 40 Mg PO DAILY Review of Systems Except as stated in HPI: all other systems reviewed are Neg General / Constitutional: No: Fever Eyes: No: Visual changes HENT: Positive: Congestion, No: Headaches Cardiovascular: No: Chest Pain or Discomfort Respiratory: Positive: Cough Gastrointestinal: No: Abdominal Pain Genitourinary: No: Dysuria Musculoskeletal: No: Pain Skin: No Rash Neurologic: No: Weakness Physical Exam Narrative GENERAL: Alert and well-appearing 83-year-old male. Resting comfortably in stretcher. No distress. SKIN: Warm and dry. HEAD: Normocephalic. EYES: No scleral icterus. No injection or drainage. NECK: Supple, trachea midline. No JVD or lymphadenopathy. CARDIOVASCULAR: Regular rate and rhythm without murmurs, gallops, or rubs. RESPIRATORY: Breath sounds equal bilaterally. No accessory muscle use. Scattered expiratory wheezes. GASTROINTESTINAL: Abdomen soft, non-tender, nondistended. MUSCULOSKELETAL: No cyanosis, or edema. BACK: Nontender without obvious deformity. No CVA tenderness. Data Data Last Documented VS Vital Signs Date Time Temp Pulse Resp B/P (MAP) Pulse Ox O2 Delivery O2 Flow Rate FiO2 03/15/18 12:34 96 Room Air 03/15/18 12:26 97.9 101 18 108/61 (77) Orders Orders Chest, Single Ap (03/15/18 13:13) Albuterol Neb (Albuterol Neb) (03/15/18 13:15) Prednisone (Deltasone) (03/15/18 13:15) MDM Medical Decision Making Medical Screen Exam Complete: Yes Emergency Medical Condition: Yes Differential Diagnosis Pneumonia, bronchitis, asthma, influenza Narrative Course 83-year-old male here with cough and congestion 3 days. He is well-appearing. No respiratory distress. Vital signs are stable. He has scattered expiratory wheezes. He denies history of COPD/asthma but reports he has nebulizers at home which he does not use. He was given prednisone and use albuterol inhaler. On recheck wheezing resolved and he is reporting symptom improvement. He is requesting discharge. Chest x-ray is negative for acute disease. Patient is stable and ready for discharge Diagnosis Primary Impression: Bronchitis Referrals: Primary Care Physician Additional Instructions: Medications as directed. Follow-up with her primary doctor. Return if he develop new or worsening symptoms Scripts Benzonatate (Tessalon Perles) 100 Mg Cap 200 MG PO TID Y for COUGH, #12 CAP 0 Refills Prov: Jennifer Morse 03/15/18 Albuterol 18 GM Inh (Ventolin Hfa 18 GM Inh) 90 Mcg/Act Aer 2 PUFF INH Q4-6H Y for SHORTNESS OF BREATH, #1 INHALER 0 Refills Prov: Jennifer Morse 03/15/18 Prednisone (Prednisone) 20 Mg Tab 40 MG PO DAILY, #10 TAB 0 Refills Take 40 mg (2 tablets) daily for 5 days Prov: Jennifer Morse 03/15/18 Azithromycin (Azithromycin) 250 Mg Tab 250 MG PO DIRECTED for Infection, #6 TAB 0 Refills Take 2 tabs (500 mg) on day 1 then 1 tab daily x 4 days. Prov: Jennifer Morse 03/15/18 Disposition: 01 DISCHARGE HOME Condition: Stable Jennifer Morse Mar 15, 2018 13:32
--- NOTE | 2018-03-15 13:50 | RADRPT ---
EXAM DATE/TIME: 03/15/2018 13:36 [facility] COMPARISON: CHEST SINGLE AP, October 09, 2015, 22:51. INDICATIONS : Productive cough and congestion for four days. MEDICAL HISTORY : Carcinoma, prostate. Hypertension. Cardiovascular disease SURGICAL HISTORY : Appendectomy. Cholecystectomy. TURP ENCOUNTER: Initial ACUITY: 4 - 6 days PAIN SCORE: 0/10 LOCATION: Bilateral chest FINDINGS: A single view of the chest demonstrates the lungs to be symmetrically aerated without evidence of mas s, infiltrate or effusion. The cardiomediastinal contours are unremarkable. Osseous structures are intact. CONCLUSION: No acute disease. Galen Teixeira MD on March 15, 2018 at 13:47 Board Certified Radiologist. This report was verified electronically.
[2018-03-15] MEDS ORDERED: AZIT250T3 PO (13:57)
[2018-03-15] MEDS ORDERED: PRED20 PO (13:57)
[2018-03-15] MEDS ORDERED: BENZ100 PO (13:57)
[2018-03-15] MEDS ORDERED: VENTAER INH (13:57)
== END 2018-03-15 14:06 | disposition home or self-care (01) ==
LOC: PHEFT 12:20
DX: J40 Bronchitis, not specified as acute or chronic (principal); E78.00 Pure hypercholesterolemia, unspecified; I10 Essential (primary) hypertension; I48.91 Unspecified atrial fibrillation; E03.9 Hypothyroidism, unspecified; K21.9 Gastro-esophageal reflux disease without esophagitis; Z86.73 Personal history of transient ischemic attack (TIA), and cerebral infarction without residual deficits; Z85.46 Personal history of malignant neoplasm of prostate; Z87.891 Personal history of nicotine dependence
CPT/HCPCS: 71045; 94664; 99283; J7512; J7613